=== PATIENT | female | born 1975 | race African-American/Black ===

== ENCOUNTER 2019-12-17 09:25 | Emergency (ER) | payer OTHER ==
[~2019-12-17] VITALS: Ht 162.6 cm; Wt 106.4 kg
[~2019-12-17 09:25] MED LIST: FURO40 PO; METF-960 PO; SITA100 PO
[2019-12-17] MEDS ORDERED: IBUP-2070 PO (09:33)
[2019-12-17] MEDS ORDERED: EMPA1TAB5 PEG (09:33)
[2019-12-17] MEDS ORDERED: CHOL100018 PO (09:33)
[2019-12-17] MEDS ORDERED: ASPI-728 PO (09:33)
[2019-12-17] MEDS ORDERED: SIMV-259 PO (09:33)
[2019-12-17] MEDS ORDERED: GLIP10 PO (09:33)
[2019-12-17 12:28] VITALS: BP 105/67
== END 2019-12-17 14:46 | disposition home or self-care (01) ==
LOC: EMS 09:27
DX: M25.561 Pain in right knee (principal); M79.9 Soft tissue disorder, unspecified; J45.909 Unspecified asthma, uncomplicated; E11.9 Type 2 diabetes mellitus without complications; Z79.84 Long term (current) use of oral hypoglycemic drugs
CPT/HCPCS: 93971

== ENCOUNTER 2021-01-15 18:10 | Emergency (ER) | payer OTHER ==
[~2021-01-15] VITALS: Ht 162.6 cm; Wt 104.5 kg
[~2021-01-15 18:10] MED LIST changes: +ASPI-1450 PO; +CHOL-35 PO; +EMPA1TAB5 PEG; -FURO40 PO; +GLIP10 PO; +IBUP-2070 PO; +METF-1211 PO; -METF-960 PO; +SIMV-259 PO; -SITA100 PO
[2021-01-15 20:36] LABS: BASOPHILS % (AUTO) 0.5 % (0.0-2.0); EOSINOPHILS % (AUTO) 1.5 % (1.0-6.0); HEMATOCRIT 43.4 % (36-46); HEMOGLOBIN 13.9 g/dL (12.0-16.0); LYMPHOCYTES # (AUTO) 3.1 K/uL (1.0-4.8); LYMPHOCYTES % (AUTO) 40.5 % (22.0-44.0); MEAN CORPUSCULAR VOLUME 88 fL (80-100); MONOCYTES # (AUTO) 0.5 K/uL (0.1-1.0); MONOCYTES % (AUTO) 5.9 % (2.0-9.0); NEUTROPHILS # (AUTO) 3.9 K/uL (1.8-7.7); NEUTROPHILS % (AUTO) 51.6 % (40.0-70.0); PLATELET COUNT (AUTO) 301 K/uL (150-450); RED BLOOD CELL COUNT(AUTO) 4.95 MIL/uL (4.00-5.20); RED CELL DISTRIBUTION WIDTH 16.5 % (11.5-14.5)
[2021-01-15 20:46] LABS: ANION GAP 11 mmol/L (8-16); CALCIUM, TOTAL 9.8 mg/dL (8.8-10.5); CARBON DIOXIDE 26 mmol/L (22-29); CHLORIDE 104 mmol/L (98-107); CREATININE 0.74 mg/dL (0.60-1.30); GLOMERULAR FILTR. RATE CALC > 60 mL/min (>60); GLUCOSE,RANDOM 189 mg/dL (70-110); POTASSIUM 3.6 mmol/L (3.5-5.1); SODIUM SERUM 141 mmol/L (136-145); UREA NITROGEN, BLOOD 9 mg/dL (7-18)
[2021-01-15 20:56] LABS: ALANINE AMINOTRANSFERASE 19 U/L (12-78); ALBUMIN 3.9 g/dL (3.4-5.0); ALKALINE PHOSPHATASE 64 U/L (46-116); ASPARTATE AMINOTRANSFERASE 15 U/L (15-37); BILIRUBIN,TOTAL 0.3 mg/dL (0.1-1.0); HCG,QUANTITATIVE < 1 mIU/mL (0-6); PHOSPHORUS 3.9 mg/dL (2.5-4.9); TOTAL PROTEIN, SERUM 8.2 g/dL (6.4-8.2)
[2021-01-15] MEDS ORDERED: SODIUM CHLORIDE 0.9% 500 ML IV ONE (21:45)
[2021-01-15] MEDS ORDERED: KETOROLAC TROMETHAMINE 30 MG/ML VIAL IVP ONE (21:45)
[2021-01-15] MEDS ORDERED: ONDANSETRON HCL 4 MG/2 ML VIAL IVP ONE (21:45)
[2021-01-15] MEDS ORDERED: FAMOTIDINE 10 MG/ML 2 ML VIAL IVP ONE (21:45)
[2021-01-15] MEDS ORDERED: MAG HYDROX/AL HYDROX/SIMETH 30 ML SUSP UDCUP PO ONE (21:45)
[2021-01-15] MEDS ORDERED: SODIUM CHLORIDE 0.9% 100 ML ONE (22:01)
[2021-01-15] MEDS ORDERED: IOHEXOL 350 MG/ML 150 ML VIAL ONE (22:01)
[2021-01-15 23:21] LABS: APPEARANCE,URINE CLOUDY (CLEAR); BILIRUBIN,URINE NEGATIVE (NEGATIVE); GLUCOSE, URINE (UA) >=1000 mg/dL (NEGATIVE); KETONES,URINE NEGATIVE (NEGATIVE); LEUKOCYTE ESTERASE ,URINE NEGATIVE (NEGATIVE); NITRATE,URINE NEGATIVE (NEGATIVE); OCCULT BLOOD,URINE NEGATIVE (NEGATIVE); PROTEIN,URINE NEGATIVE (NEGATIVE); UROBILINOGEN,URINE 0.2 mg/dL (<=1.0)
[2021-01-15 23:39] LABS: BACTERIA,URINE Rare /HPF (None Seen); RBC,URINE 0-2 /HPF (0-2); WBC,URINE 0-2 /HPF (0-5)
[2021-01-16 00:41] VITALS: BP 124/70
== END 2021-01-16 00:30 | disposition home or self-care (01) ==
LOC: EMS 18:10
DX: R51.9 Headache, unspecified (principal); R10.33 Periumbilical pain; R30.0 Dysuria; J45.909 Unspecified asthma, uncomplicated; E11.9 Type 2 diabetes mellitus without complications; I51.9 Heart disease, unspecified; I25.10 Atherosclerotic heart disease of native coronary artery without angina pectoris; Z79.84 Long term (current) use of oral hypoglycemic drugs
CPT/HCPCS: 36415; 74177; 80053; 81001; 81003; 83735; 84100; 84702; 85025; 96374; 96375; 99285; J1885; J2405; J3490; J7040; J7050; Q9967

== ENCOUNTER 2021-09-27 14:37 | Emergency (ER) | payer OTHER ==
[~2021-09-27] VITALS: Ht 162.6 cm; Wt 104.5 kg
[~2021-09-27 14:37] MED LIST changes: -CHOL-35 PO; +CHOL25TA4 PO; -GLIP10 PO; +GLIP10TA10 PO
[2021-09-27] MEDS ORDERED: FAMO20 PO ×2 (15:26→20:27)
[2021-09-27] MEDS ORDERED: CETI-450 PO (15:26)
[2021-09-27] MEDS ORDERED: ATOR20TA86 PO (15:26)
[2021-09-27 17:45] LABS: BASOPHILS % (AUTO) 0.6 % (0.0-2.0); EOSINOPHILS % (AUTO) 0.7 % (1.0-6.0); HEMOGLOBIN 12.7 g/dL (12.0-16.0); LYMPHOCYTES # (AUTO) 2.3 K/uL (1.0-4.8); LYMPHOCYTES % (AUTO) 38.1 % (22.0-44.0); MEAN CORPUSCULAR HEMOGLOBIN 28.3 pg (26.0-34.0); MEAN CORPUSCULAR HGB CONC 32.6 G/dL (31.0-37.0); MEAN CORPUSCULAR VOLUME 87 fL (80-100); MONOCYTES # (AUTO) 0.4 K/uL (0.1-1.0); MONOCYTES % (AUTO) 6.9 % (2.0-9.0); NEUTROPHILS # (AUTO) 3.2 K/uL (1.8-7.7); NEUTROPHILS % (AUTO) 53.7 % (40.0-70.0); PLATELET COUNT (AUTO) 334 K/uL (150-450); RED BLOOD CELL COUNT(AUTO) 4.49 MIL/uL (4.00-5.20); RED CELL DISTRIBUTION WIDTH 14.3 % (11.5-14.5)
[2021-09-27 17:51] LABS: GLUCOSE,POINT OF CARE 128 MG/DL (70-110)
[2021-09-27 17:52] LABS: ANION GAP 13 mmol/L (8-16); CALCIUM, TOTAL 9.1 mg/dL (8.8-10.5); CARBON DIOXIDE 24 mmol/L (22-29); CHLORIDE 101 mmol/L (98-107); CREATININE 0.62 mg/dL (0.60-1.30); GLUCOSE,RANDOM 145 mg/dL (70-110); POTASSIUM 3.5 mmol/L (3.5-5.1); SODIUM SERUM 138 mmol/L (136-145); UREA NITROGEN, BLOOD 7 mg/dL (7-18)
[2021-09-27 17:55] LABS: APPEARANCE,URINE CLEAR (CLEAR); BILIRUBIN,URINE NEGATIVE (NEGATIVE); GLUCOSE, URINE (UA) >=1000 mg/dL (NEGATIVE); KETONES,URINE 40-60 mg/dL (NEGATIVE); LEUKOCYTE ESTERASE ,URINE NEGATIVE (NEGATIVE); NITRATE,URINE NEGATIVE (NEGATIVE); OCCULT BLOOD,URINE NEGATIVE (NEGATIVE); PH,URINE 5.5 (5.0-8.0); PROTEIN,URINE TRACE mg/dL (NEGATIVE); UROBILINOGEN,URINE <=1.0 mg/dL (<=1.0)
[2021-09-27 17:56] LABS: GLOMERULAR FILTR. RATE CALC > 60 mL/min (>60)
[2021-09-27 18:03] LABS: ALANINE AMINOTRANSFERASE 21 U/L (12-78); ALBUMIN 3.6 g/dL (3.4-5.0); ALKALINE PHOSPHATASE 58 U/L (46-116); AMYLASE 26 U/L (25-115); ASPARTATE AMINOTRANSFERASE 17 U/L (15-37); BILIRUBIN,TOTAL 0.4 mg/dL (0.1-1.0); HCG,QUANTITATIVE 1 mIU/mL (0-6); LIPASE 78 U/L (73-393); TOTAL PROTEIN, SERUM 7.4 g/dL (6.4-8.2)
[2021-09-27 18:04] LABS: BACTERIA,URINE Few /HPF (None Seen); RBC,URINE 0-2 /HPF (0-2); SQUAMOUS EPITHELIAL CELL,UR Moderate /LPF (None Seen); WBC,URINE 0-2 /HPF (0-5)
[2021-09-27] MEDS ORDERED: MAG HYDROX/AL HYDROX/SIMETH ES 30 ML SUSPENSION UDCUP PO ONE (18:45)
[2021-09-27] MEDS ORDERED: SODIUM CHLORIDE 0.9% 1,000 ML IV ONE (18:45)
[2021-09-27] MEDS ORDERED: KETOROLAC TROMETHAMINE 30 MG/ML VIAL IVP ONE (18:45)
[2021-09-27] MEDS ORDERED: ONDANSETRON HCL 4 MG/2 ML VIAL IVP ONE (18:45)
[2021-09-27 20:15] VITALS: BP 134/67
[2021-09-27] MEDS ORDERED: OMEP20 PO (20:27)
[2021-09-27] MEDS ORDERED: MAG30ORA11 PO (20:27)
[2021-09-27] MEDS ORDERED: ACET-66 PO (20:27)
== END 2021-09-27 21:10 | disposition home or self-care (01) ==
LOC: EMS 14:41
DX: K21.00 Gastro-esophageal reflux disease with esophagitis, without bleeding (principal); B19.10 Unspecified viral hepatitis B without hepatic coma; E11.9 Type 2 diabetes mellitus without complications; J45.909 Unspecified asthma, uncomplicated; K21.9 Gastro-esophageal reflux disease without esophagitis; R51.9 Headache, unspecified; Z28.311 Partially vaccinated for COVID-19
CPT/HCPCS: 99285; 74176; 96374; 76700; 96361; 96375; 80053; 81001; 82150; 82962; 83690; 84702; 85025; 36415; J1885; J2405; J7030

== ENCOUNTER 2022-07-10 17:56 | Emergency (ER) | payer OTHER ==
[~2022-07-10] VITALS: Ht 162.6 cm; Wt 109.1 kg
[~2022-07-10 17:56] MED LIST changes: +ACET-66 PO; +ATOR20TA PO; +CETI-450 PO; +FAMO20 PO; +IBUP-1492 PO; -IBUP-2070 PO; +MAG30ORA11 PO; +OMEP20 PO
[2022-07-10] MEDS ORDERED: GLIP-102 PO (18:06)
[2022-07-10] MEDS ORDERED: LISI-892 PO (18:07)
[2022-07-10] MEDS ORDERED: SEMA2PEN SQ (18:07)
[2022-07-10 18:36] LABS: COVID AG,FIA SOURCE NASAL SWAB
[2022-07-10 19:07] LABS: INFLUENZA TYPE A NEGATIVE FOR TYPE A (NEGATIVE); INFLUENZA TYPE B NEGATIVE FOR TYPE B (NEGATIVE)
[2022-07-10] MEDS ORDERED: BENZ-227 PO (20:08)
[2022-07-10] MEDS ORDERED: AZIT250T9 PO (20:08)
[2022-07-10] MEDS ORDERED: ALBU18HF12 IH (20:08)
[2022-07-10 20:59] VITALS: BP 125/63
== END 2022-07-10 21:02 | disposition home or self-care (01) ==
LOC: EMS 17:56
DX: J40 Bronchitis, not specified as acute or chronic (principal); E11.9 Type 2 diabetes mellitus without complications; Z98.890 Other specified postprocedural states; Z20.822 Contact with and (suspected) exposure to COVID-19
CPT/HCPCS: 71045; 82962; 87804; 99284

== ENCOUNTER 2022-11-15 18:29 | Emergency (ER) | payer OTHER ==
[~2022-11-15] VITALS: Ht 162.6 cm; Wt 98.6 kg
[~2022-11-15 18:29] MED LIST changes: -ACET-66 PO; +ALBU18HF12 IH; -ASPI-1450 PO; +BENZ-227 PO; -CETI-450 PO; -CHOL25TA4 PO; +GLIP-102 PO; -GLIP10TA10 PO; -IBUP-1492 PO; +LISI-892 PO; -MAG30ORA11 PO; -METF-1211 PO; -OMEP20 PO; +SEMA2PEN SQ; -SIMV-259 PO
[2022-11-15 18:41] VITALS: BP 102/65; PULSE 86; RESP 16; TEMP 97.9
[2022-11-15 19:08] LABS: HEMATOCRIT 38.2 % (36-46); MEAN CORPUSCULAR HEMOGLOBIN 24.9 pg (26.0-34.0); MEAN CORPUSCULAR HGB CONC 31.5 G/dL (31.0-37.0); MEAN CORPUSCULAR VOLUME 79 fL (80-100); NEUTROPHILS % (AUTO) 51.4 % (40.0-70.0); PLATELET COUNT (AUTO) 351 K/uL (150-450); RED BLOOD CELL COUNT(AUTO) 4.84 MIL/uL (4.00-5.20); RED CELL DISTRIBUTION WIDTH 24.5 % (11.5-14.5); WHITE BLOOD COUNT (AUTO) 6.1 K/uL (4.5-11.0)
[2022-11-15 19:09] LABS: BASOPHILS % (AUTO) 0.9 % (0.0-2.0); EOSINOPHILS % (AUTO) 1.4 % (1.0-6.0); LYMPHOCYTES # (AUTO) 2.5 K/uL (1.0-4.8); LYMPHOCYTES % (AUTO) 41.6 % (22.0-44.0); MONOCYTES # (AUTO) 0.3 K/uL (0.1-1.0); MONOCYTES % (AUTO) 4.7 % (2.0-9.0); NEUTROPHILS # (AUTO) 3.1 K/uL (1.8-7.7)
[2022-11-15 19:15] LABS: APPEARANCE,URINE CLEAR (CLEAR); BILIRUBIN,URINE NEGATIVE (NEGATIVE); COLOR,URINE LIGHT YELLOW (YELLOW); GLUCOSE, URINE (UA) >=1000 mg/dL (NEGATIVE); KETONES,URINE NEGATIVE (NEGATIVE); LEUKOCYTE ESTERASE ,URINE NEGATIVE (NEGATIVE); NITRATE,URINE NEGATIVE (NEGATIVE); OCCULT BLOOD,URINE LARGE (NEGATIVE); PH,URINE 5.5 (5.0-8.0); PROTEIN,URINE NEGATIVE (NEGATIVE); SPECIFIC GRAVITIY, URINE 1.035 (1.003-1.030); UROBILINOGEN,URINE <=1.0 mg/dL (<=1.0)
[2022-11-15 19:20] LABS: ANION GAP 10 mmol/L (8-16); CALCIUM, TOTAL 9.6 mg/dL (8.8-10.5); CARBON DIOXIDE 25 mmol/L (22-29); CHLORIDE 102 mmol/L (98-107); CREATININE 0.81 mg/dL (0.60-1.30); GLOMERULAR FILTR. RATE CALC > 60 mL/min (>60); GLUCOSE,RANDOM 154 mg/dL (70-110); POTASSIUM 3.8 mmol/L (3.5-5.1); SODIUM SERUM 137 mmol/L (136-145); UREA NITROGEN, BLOOD 14 mg/dL (7-18)
[2022-11-15 19:22] LABS: BACTERIA,URINE Rare /HPF (None Seen); RBC,URINE 51-100 /HPF (0-2); SQUAMOUS EPITHELIAL CELL,UR Few /LPF (None Seen); WBC,URINE 0-2 /HPF (0-5)
[2022-11-15 19:45] LABS: ALANINE AMINOTRANSFERASE 21 U/L (12-78); ALBUMIN 3.5 g/dL (3.4-5.0); ALKALINE PHOSPHATASE 70 U/L (46-116); ASPARTATE AMINOTRANSFERASE 17 U/L (15-37); BILIRUBIN,TOTAL 0.1 mg/dL (0.1-1.0); HCG,QUANTITATIVE 1 mIU/mL (0-6); LIPASE 37 U/L (16-77); TOTAL PROTEIN, SERUM 7.6 g/dL (6.4-8.2)
[2022-11-15] MEDS ORDERED: PB/HYOSCY/ATR/SCOP/LIDO/MAALOX 55 ML BOTTLE PO ONE (20:30)
[2022-11-15] MEDS ORDERED: OMEPRAZOLE 20 MG CAPSULE PO ONE (20:30)
[2022-11-15] MEDS ORDERED: ONDANSETRON HCL 4 MG TABLET PO ONE (20:30)
[2022-11-15] MEDS ORDERED: OMEP20 PO (20:58)
[2022-11-15] MEDS ORDERED: MAG30ORA11 PO (20:58)
[2022-11-15] MEDS ORDERED: ONDA-104 PO (20:58)
== END 2022-11-15 21:07 | disposition home or self-care (01) ==
LOC: EMS 18:31
DX: K21.9 Gastro-esophageal reflux disease without esophagitis (principal); R10.13 Epigastric pain; J45.909 Unspecified asthma, uncomplicated; E11.9 Type 2 diabetes mellitus without complications; Z98.890 Other specified postprocedural states
CPT/HCPCS: 99284; 80053; 81001; 83690; 84702; 85025; 36415; Q0162

== ENCOUNTER 2023-02-22 21:53 | Emergency (ER) | payer OTHER ==
[~2023-02-22] VITALS: Ht 162.6 cm; Wt 98.0 kg
[~2023-02-22 21:53] MED LIST changes: +MAG30ORA11 PO; +OMEP20 PO; +ONDA-104 PO
[2023-02-22 21:57] VITALS: TEMP 97.7
[2023-02-23 00:23] VITALS: BP 127/68; PULSE 70; RESP 18
[2023-02-23] MEDS ORDERED: IBUPROFEN 600 MG TABLET PO ONE (01:15)
== END 2023-02-23 02:18 | disposition home or self-care (01) ==
LOC: EMS 21:54
DX: M67.432 Ganglion, left wrist (principal); E11.9 Type 2 diabetes mellitus without complications
CPT/HCPCS: 99283